=== PATIENT | female | born 1975 | race Caucasian/White ===

== ENCOUNTER 2017-01-31 10:08 | Emergency (ER) | payer MEDICAID ==
[~2017-01-31] VITALS: Ht 167.6 cm; Wt 52.0 kg
[2017-01-31 11:25] LABS: HEMATOCRIT 44.1 % (34.6-47.8); HEMOGLOBIN 14.8 g/dL (11.7-16.4)
[2017-01-31 11:39] LABS: BLOOD UREA NITROGEN 19 mg/dL (7-18)
[2017-01-31 11:45] LABS: IS PT STATUS REG ER OR PRE ER? YES
[2017-01-31 13:00] VITALS: BP 107/66
== END 2017-01-31 13:02 | disposition home or self-care (01) ==
LOC: ED 12:28
DX: R55 Syncope and collapse (principal); R00.2 Palpitations; Z88.0 Allergy status to penicillin; Z88.1 Allergy status to other antibiotic agents
CPT/HCPCS: 36415; 71010; 80048; 82040; 84436; 84443; 84484; 85025; 93005; 99285

== ENCOUNTER 2017-11-15 17:40 | Emergency (ER) | payer MEDICAID ==
[~2017-11-15] VITALS: Ht 167.6 cm; Wt 46.8 kg
[2017-11-15 17:52] VITALS: BP 146/92
[2017-11-15] MEDS ORDERED: SILVER SULF. CRM 1% , 25GM TP ONE ×2 (18:00→19:00)
[2017-11-15] MEDS ORDERED: DIPH,PERTUSS(ACELL),TET VAC/PF 0.5 ML IM-VACC ONE ×2 (18:00→19:20)
[2017-11-15] MEDS ORDERED: IBUPROFEN 200 MG TABLET PO ONE (19:00)
[2017-11-15] MEDS ORDERED: HYDROcodone/APAP 5/325 TABLET PO ONE (19:00)
[2017-11-15] MEDS ORDERED: HYDROcodone/APAP 5/325 TABLET ONE (19:21)
[2017-11-15] MEDS ORDERED: IBUPROFEN 200 MG TABLET ONE (19:21)
== END 2017-11-15 20:14 | disposition home or self-care (01) ==
LOC: ED 19:45
DX: T25.232A Burn of second degree of left toe(s) (nail), initial encounter (principal); T31.0 Burns involving less than 10% of body surface; K21.9 Gastro-esophageal reflux disease without esophagitis; Z88.0 Allergy status to penicillin; X12.XXXA Contact with other hot fluids, initial encounter; Y93.89 Activity, other specified; Y92.098 Other place in other non-institutional residence as the place of occurrence of the external cause; Y99.8 Other external cause status
CPT/HCPCS: 16020; 90715; 96372; 99283; 99284

== ENCOUNTER 2017-12-13 18:29 | Emergency (ER) | payer MEDICAID ==
[~2017-12-13] VITALS: Ht 167.6 cm; Wt 50.0 kg
[2017-12-13 18:38] VITALS: BP 110/83
[2017-12-13] MEDS ORDERED: LIDOCAINE-MPF 2% ,5ML ONE (18:57)
[2017-12-13] MEDS ORDERED: DEXAMETHASONE 4 MG TABLET PO ONE (19:00)
[2017-12-13] MEDS ORDERED: METOCLOPRAMIDE 5 MG/ML, 2ML IVPush ONE (19:00)
[2017-12-13] MEDS ORDERED: SODIUM CHLORIDE 0.9% 1,000ML IVBOLUS ONE (19:00)
[2017-12-13] MEDS ORDERED: SODIUM CHLORIDE FLUSH 10ML SYR IVF ONE (19:00)
[2017-12-13] MEDS ORDERED: LIDOCAINE 2%, 10ML INFIL ONE (19:00)
[2017-12-13] MEDS ORDERED: DIPHENHYDRAMINE 50 MG/ML, 1ML IVPush ONE (19:00)
[2017-12-13 19:15] LABS: BASOPHILS # (AUTO) 0.06 x10^3/uL (0-0.1); BASOPHILS % (AUTO) 1 % (0-1); EOSINOPHILS # (AUTO) 0.12 x10^3/uL (0-0.4); EOSINOPHILS % (AUTO) 1 % (1-7); LYMPHOCYTES # (AUTO) 2.44 x10^3/uL (1-3.4); LYMPHOCYTES % (AUTO) 30 % (22-44); MD NO; MEAN CORPUSCULAR HEMOGLOBIN 28.9 pg (27.0-34.8); MEAN CORPUSCULAR HGB CONC 33.6 g/dL (32.4-35.8); MEAN CORPUSCULAR VOLUME 85.8 fL (80-100); MEAN PLATELET VOLUME 8.7 fL (7.4-10.4); MONOCYTES # (AUTO) 0.51 x10^3/uL (0.2-0.8); MONOCYTES % (AUTO) 6 % (2-9); NEUTROPHILS % (AUTO) 62 % (42-75); PLATELET COUNT 327 x10^3/uL (130-400); RED BLOOD COUNT 5.36 x10^6/uL (3.82-5.3); RED CELL DISTRIBUTION WIDTH 13.1 % (9.6-15.2)
[2017-12-13] MEDS ORDERED: DEXAMETHASONE 4 MG TABLET ONE (19:16)
[2017-12-13 19:26] LABS: CHLORIDE 107 mmol/L (98-107)
[2017-12-13 19:27] LABS: ALBUMIN 4.3 g/dL (3.4-5.0); ANION GAP 7 mmol/L (5-15); CALCIUM 9.3 mg/dL (8.5-10.1); CREATININE 1.01 mg/dL (0.55-1.02)
== END 2017-12-13 20:55 | disposition left against medical advice (07) ==
LOC: ED 20:50
DX: G44.039 Episodic paroxysmal hemicrania, not intractable (principal); I10 Essential (primary) hypertension; K21.9 Gastro-esophageal reflux disease without esophagitis; Z88.0 Allergy status to penicillin; Z88.1 Allergy status to other antibiotic agents; Z88.6 Allergy status to analgesic agent; Z90.49 Acquired absence of other specified parts of digestive tract
CPT/HCPCS: 36415; 80048; 82040; 84703; 85025; 99284

== ENCOUNTER 2018-04-18 00:37 | Emergency (ER) | payer MEDICAID ==
[~2018-04-18] VITALS: Ht 167.6 cm; Wt 47.2 kg
[2018-04-18] MEDS ORDERED: LISI-167 PO (00:52)
[2018-04-18] MEDS ORDERED: CARV12.543 PO (00:52)
[2018-04-18 01:26] LABS: BASOPHILS # (AUTO) 0.04 x10^3/uL (0-0.1); BASOPHILS % (AUTO) 1 % (0-1); EOSINOPHILS # (AUTO) 0.08 x10^3/uL (0-0.4); EOSINOPHILS % (AUTO) 1 % (1-7); LYMPHOCYTES # (AUTO) 1.98 x10^3/uL (1-3.4); LYMPHOCYTES % (AUTO) 27 % (22-44); MD NO; MEAN CORPUSCULAR HEMOGLOBIN 30.3 pg (27.0-34.8); MEAN CORPUSCULAR HGB CONC 34.2 g/dL (32.4-35.8); MEAN CORPUSCULAR VOLUME 88.5 fL (80-100); MEAN PLATELET VOLUME 7.7 fL (7.4-10.4); MONOCYTES # (AUTO) 0.49 x10^3/uL (0.2-0.8); MONOCYTES % (AUTO) 7 % (2-9); NEUTROPHILS # (AUTO) 4.64 x10^3/uL (1.8-6.8); NEUTROPHILS % (AUTO) 64 % (42-75); PLATELET COUNT 438 x10^3/uL (130-400); RED BLOOD COUNT 4.35 x10^6/uL (3.82-5.3); RED CELL DISTRIBUTION WIDTH 13.5 % (9.6-15.2)
[2018-04-18 01:36] LABS: ALBUMIN 3.7 g/dL (3.4-5.0); ANION GAP 9 mmol/L (5-15); CALCIUM 8.1 mg/dL (8.5-10.1); CHLORIDE 111 mmol/L (98-107)
[2018-04-18 01:40] LABS: FREE T4 (FREE THYROXINE) 1.17 ng/dL (0.76-1.46); TROPONIN I < 0.015 ng/mL (0.000-0.045)
[2018-04-18 01:41] VITALS: BP 111/73
[2018-04-18 01:45] LABS: THYROID STIMULATING HORMONE 0.471 mIU/L (0.358-3.740)
== END 2018-04-18 02:23 | disposition home or self-care (01) ==
LOC: ED 01:08
DX: R00.2 Palpitations (principal); R51 Headache; R07.89 Other chest pain; I11.0 Hypertensive heart disease with heart failure; I50.9 Heart failure, unspecified; K21.9 Gastro-esophageal reflux disease without esophagitis; F17.200 Nicotine dependence, unspecified, uncomplicated; Z90.49 Acquired absence of other specified parts of digestive tract
CPT/HCPCS: 36415; 71045; 80048; 82040; 84439; 84443; 84484; 85025; 93005; 99285

== ENCOUNTER 2019-04-22 12:59 | Inpatient (IN) | payer MEDICAID ==
[~2019-04-22] VITALS: Ht 167.6 cm; Wt 54.1 kg
[~2019-04-22 12:59] MED LIST: CARV12.543 PO; LISI-167 PO
[2019-04-22] MEDS ORDERED: SODIUM CHLORIDE 0.9% 1,000ML IVBOLUS ONE (13:30)
[2019-04-22] MEDS ORDERED: CEFTRIAXONE PMX 1GM/50ML 50 ML IVPB ONE (13:30)
[2019-04-22] MEDS ORDERED: HYDROmorphone 1 MG/ML, 1ML INJ IVPush PRN (13:30)
[2019-04-22] MEDS ORDERED: ONDANSETRON 2MG/ML, 2ML IVPush ONE (13:30)
[2019-04-22] MEDS ORDERED: SODIUM CHLORIDE FLUSH 10ML SYR IVF ONE (13:30)
[2019-04-22] MEDS ORDERED: ONDANSETRON 2MG/ML, 2ML ONE (13:31)
[2019-04-22] MEDS ORDERED: HYDROmorphone 1 MG/ML, 1ML VIAL ONE (13:31)
[2019-04-22] MEDS ORDERED: CEFTRIAXONE PMX 1GM/50ML 50 ML ONE (13:31)
--- NOTE | 2019-04-22 13:41 | NUR ---
pt to ed for bilat flank pain and painful urination x "a few days." pt is taking azo wtih no relief. pt now feels generalized aches and has a fever. pt connected to all monitors. tachy, all other vss. Dr. Ramirez to bs for assessment and orders received. iv established and labs and bc x1 collected. laboratory machinist to bs to collect bc x2. pt medicated per mar. ivf bolus started. no other needs at this time. poc discussed. all questions answered. awaiting lab results.
[2019-04-22 13:45] LABS: MEAN CORPUSCULAR HGB CONC 33.4 g/dL (32.4-35.8); MEAN CORPUSCULAR VOLUME 86.9 fL (80-100); MEAN PLATELET VOLUME 8.2 fL (7.4-10.4); PLATELET COUNT 354 x10^3/uL (130-400); RED BLOOD COUNT 4.68 x10^6/uL (3.82-5.3)
[2019-04-22 13:50] LABS: CULTURE INDICATED? YES; MICROSCOPIC INDICATED
[2019-04-22 13:55] LABS: ANION GAP 8 mmol/L (5-15); CALCIUM 8.4 mg/dL (8.5-10.1); CHLORIDE 104 mmol/L (98-107)
[2019-04-22 13:58] LABS: ALANINE AMINOTRANSFERASE 27 U/L (12-78); ALKALINE PHOSPHATASE 78 U/L (45-117); BILIRUBIN,TOTAL 0.9 mg/dL (0.2-1.0); CREATININE 1.31 mg/dL (0.55-1.02); TOTAL PROTEIN 7.6 g/dL (6.4-8.2)
--- NOTE | 2019-04-22 14:13 | NUR ---
PT RESTING IN ROOM. VSS. NO NEEDS EXPRESSED. CALL LIGHT WITHIN REACH. AWAITING LAB RESUTLS.
--- NOTE | 2019-04-22 14:45 | NUR ---
report to EMILIANO Gibbons. pt ready for transport. pt resting in room .vss. no needs exrpessed. call light within reach. awaiting transfer.
[2019-04-22 14:56] LABS: MD YES
[2019-04-22] MEDS ORDERED: SODIUM CHLORIDE 0.9% 1,000 ML IV SCH (15:06)
[2019-04-22 15:12] VITALS: BP 114/69
[2019-04-22 15:21] LABS: <PLATELET ESTIMATE> ADEQUATE; <PLT MORPHOLOGY> NORMAL PLT MORPH; <RBC MORPHOLOGY> NORMAL; BAND#(MANUAL) 1.04 x10^3/uL; BANDS%(MANUAL) 5 % (0-7); LYMPH#(MANUAL) 1.24 x10^3/uL (1-3.4); LYMPHS% (MANUAL) 6 % (22-44); MONOS#(MANUAL) 1.45 x10^3/uL (0.3-2.7); MONOS% (MANUAL) 7 % (2-9); SEG#(MANUAL) 16.97 x10^3/uL (1.8-6.8); SEGS% (MANUAL) 82 % (42-75)
[2019-04-22] MEDS ORDERED: SODIUM CHLORIDE 0.9% 1,000ML IV ONE (15:30)
[2019-04-22] MEDS ORDERED: morphine SULFATE 10 MG/ML, 1ML IV PRN (15:30)
[2019-04-22] MEDS ORDERED: PHARMACY MAY ADJ FOR RENAL FX MC SCH (15:30)
[2019-04-22] MEDS ORDERED: ONDANSETRON 2MG/ML, 2ML IV PRN (15:30)
[2019-04-22] MEDS: SODIUM CHLORIDE 0.9% 1,000 ML IV SCH (18:05)
[2019-04-22 18:32] VITALS: BP 111/73
[2019-04-22] MEDS ORDERED: ACETAMINOPHEN 325 MG TABLET ONE (18:38)
[2019-04-22] MEDS: ACETAMINOPHEN 325 MG TABLET PO PRN (18:39)
[2019-04-22 19:43] VITALS: BP 96/61
[2019-04-22] MEDS: ENOXAPARIN 30 MG/0.3 ML SQ SCH (20:06)
[2019-04-22] MEDS: NICOTINE 21 MG/24 HR PATCH.TD24 TD SCH (20:23)
[2019-04-22] MEDS: HYDROcodone/APAP 5/325 TABLET PO PRN (20:24)
[2019-04-22 22:00] VITALS: BP 86/54
[2019-04-22 22:51] VITALS: BP 87/52
[2019-04-22] MEDS ORDERED: SODIUM CHLORIDE 0.9%, 500ML IVBOLUS ONE (23:30)
[2019-04-23 01:51] VITALS: BP 93/55
[2019-04-23] MEDS: ACETAMINOPHEN 325 MG TABLET PO PRN (02:04)
[2019-04-23 04:19] VITALS: BP 99/62
[2019-04-23] MEDS: SODIUM CHLORIDE 0.9% 1,000 ML IV SCH ×2 (06:00→15:30)
[2019-04-23 06:04] VITALS: BP 95/61
[2019-04-23 07:09] VITALS: BP 97/59
[2019-04-23 07:44] LABS: ANION GAP 4 mmol/L (5-15); CALCIUM 6.9 mg/dL (8.5-10.1); CHLORIDE 116 mmol/L (98-107)
[2019-04-23 07:48] LABS: ALANINE AMINOTRANSFERASE 24 U/L (12-78); ALKALINE PHOSPHATASE 56 U/L (45-117); BILIRUBIN,TOTAL 0.7 mg/dL (0.2-1.0); CREATININE 0.82 mg/dL (0.55-1.02); TOTAL PROTEIN 5.3 g/dL (6.4-8.2)
[2019-04-23 07:56] LABS: MEAN CORPUSCULAR HEMOGLOBIN 29.2 pg (27.0-34.8); MEAN CORPUSCULAR HGB CONC 33.2 g/dL (32.4-35.8); MEAN CORPUSCULAR VOLUME 87.9 fL (80-100); MEAN PLATELET VOLUME 7.7 fL (7.4-10.4); PLATELET COUNT 232 x10^3/uL (130-400); RED CELL DISTRIBUTION WIDTH 13.2 % (9.6-15.2)
[2019-04-23 08:23] LABS: BASOPHILS % (AUTO) 0 % (0-1); EOSINOPHILS # (AUTO) 0.01 x10^3/uL (0-0.4); EOSINOPHILS % (AUTO) 0 % (1-7); LYMPHOCYTES # (AUTO) 0.45 x10^3/uL (1-3.4); LYMPHOCYTES % (AUTO) 2 % (22-44); MD SCAN; MONOCYTES # (AUTO) 1.31 x10^3/uL (0.2-0.8); MONOCYTES % (AUTO) 7 % (2-9); NEUTROPHILS # (AUTO) 16.49 x10^3/uL (1.8-6.8); NEUTROPHILS % (AUTO) 90 % (42-75)
[2019-04-23] MEDS: HYDROcodone/APAP 5/325 TABLET PO PRN ×4 (08:43→20:07)
[2019-04-23] MEDS: NICOTINE 21 MG/24 HR PATCH.TD24 TD SCH (08:43)
[2019-04-23] MEDS: ENOXAPARIN 30 MG/0.3 ML SQ SCH ×2 (08:44→20:11)
[2019-04-23] MEDS ORDERED: NICOTINE 21 MG/24 HR PATCH.TD24 TD SCH (09:00)
[2019-04-23] MEDS ORDERED: POTASSIUM CHLORIDE 20 MEQ TAB.ER.PRT PO ONE (10:00)
[2019-04-23] MEDS: CEFTRIAXONE PMX 2GM/50ML 50 ML IV SCH (12:52)
[2019-04-23] MEDS: CALCIUM CARBONATE 500 MG TAB.CHEW PO SCH ×2 (12:52→20:07)
[2019-04-23 13:46] VITALS: BP 122/76
[2019-04-23 19:27] VITALS: BP 112/66
[2019-04-23] MEDS ORDERED: MAGNESIUM SULFATE PMX 4GM/100M 100 ML IV ONE (19:30)
[2019-04-23] MEDS: CARVEDILOL 12.5 MG TABLET PO SCH (20:07)
[2019-04-24] MEDS: SODIUM CHLORIDE 0.9% 1,000 ML IV SCH ×3 (01:30→22:47)
[2019-04-24 01:35] VITALS: BP 102/67
[2019-04-24] MEDS: HYDROcodone/APAP 5/325 TABLET PO PRN ×4 (01:44→20:29)
[2019-04-24 06:47] LABS: BASOPHILS # (AUTO) 0.02 x10^3/uL (0-0.1); BASOPHILS % (AUTO) 0 % (0-1); EOSINOPHILS # (AUTO) 0.23 x10^3/uL (0-0.4); EOSINOPHILS % (AUTO) 2 % (1-7); LYMPHOCYTES # (AUTO) 0.69 x10^3/uL (1-3.4); LYMPHOCYTES % (AUTO) 6 % (22-44); MD NO; MEAN CORPUSCULAR HEMOGLOBIN 29.4 pg (27.0-34.8); MEAN CORPUSCULAR HGB CONC 33.1 g/dL (32.4-35.8); MEAN CORPUSCULAR VOLUME 88.9 fL (80-100); MEAN PLATELET VOLUME 8.4 fL (7.4-10.4); MONOCYTES # (AUTO) 0.88 x10^3/uL (0.2-0.8); MONOCYTES % (AUTO) 7 % (2-9); NEUTROPHILS # (AUTO) 9.97 x10^3/uL (1.8-6.8); NEUTROPHILS % (AUTO) 85 % (42-75); PLATELET COUNT 235 x10^3/uL (130-400); RED CELL DISTRIBUTION WIDTH 13.2 % (9.6-15.2)
[2019-04-24 06:55] LABS: ALANINE AMINOTRANSFERASE 22 U/L (12-78); ALBUMIN 1.9 g/dL (3.4-5.0); ANION GAP 3 mmol/L (5-15); CALCIUM 7.3 mg/dL (8.5-10.1); CHLORIDE 115 mmol/L (98-107); CREATININE 0.74 mg/dL (0.55-1.02)
[2019-04-24 06:57] VITALS: BP 109/72
[2019-04-24 06:57] LABS: ALKALINE PHOSPHATASE 63 U/L (45-117); BILIRUBIN,TOTAL 0.3 mg/dL (0.2-1.0); TOTAL PROTEIN 5.5 g/dL (6.4-8.2)
[2019-04-24] MEDS: ENOXAPARIN 30 MG/0.3 ML SQ SCH ×2 (08:46→20:29)
[2019-04-24] MEDS: CALCIUM CARBONATE 500 MG TAB.CHEW PO SCH ×2 (08:46→20:29)
[2019-04-24] MEDS: CARVEDILOL 12.5 MG TABLET PO SCH ×2 (08:46→20:28)
[2019-04-24] MEDS: NICOTINE 21 MG/24 HR PATCH.TD24 TD SCH (08:47)
[2019-04-24] MEDS ORDERED: MAGNESIUM SULFATE PMX 2GM/50ML 50 ML IV ONE (09:00)
[2019-04-24 12:16] VITALS: BP 104/68
[2019-04-24] MEDS: CEFTRIAXONE PMX 2GM/50ML 50 ML IV SCH (13:20)
[2019-04-24 20:11] VITALS: BP 125/80
[2019-04-24] MEDS: ACETAMINOPHEN 325 MG TABLET PO PRN (20:28)
[2019-04-25 02:27] VITALS: BP 115/70
[2019-04-25] MEDS: HYDROcodone/APAP 5/325 TABLET PO PRN (05:27)
[2019-04-25 07:25] VITALS: BP 123/72
[2019-04-25] MEDS: ENOXAPARIN 30 MG/0.3 ML SQ SCH (08:00)
[2019-04-25] MEDS: SODIUM CHLORIDE 0.9% 1,000 ML IV SCH (08:38)
[2019-04-25 09:35] LABS: BASOPHILS # (AUTO) 0.03 x10^3/uL (0-0.1); BASOPHILS % (AUTO) 0 % (0-1); EOSINOPHILS # (AUTO) 0.03 x10^3/uL (0-0.4); EOSINOPHILS % (AUTO) 0 % (1-7); LYMPHOCYTES # (AUTO) 0.79 x10^3/uL (1-3.4); LYMPHOCYTES % (AUTO) 11 % (22-44); MD NO; MEAN CORPUSCULAR HEMOGLOBIN 28.8 pg (27.0-34.8); MEAN CORPUSCULAR HGB CONC 33.3 g/dL (32.4-35.8); MEAN CORPUSCULAR VOLUME 86.6 fL (80-100); MONOCYTES # (AUTO) 0.56 x10^3/uL (0.2-0.8); MONOCYTES % (AUTO) 8 % (2-9); NEUTROPHILS # (AUTO) 5.68 x10^3/uL (1.8-6.8); NEUTROPHILS % (AUTO) 80 % (42-75); PLATELET COUNT 284 x10^3/uL (130-400); RED BLOOD COUNT 3.39 x10^6/uL (3.82-5.3); RED CELL DISTRIBUTION WIDTH 13.3 % (9.6-15.2)
[2019-04-25 09:44] LABS: ANION GAP 5 mmol/L (5-15); CALCIUM 7.4 mg/dL (8.5-10.1); CHLORIDE 115 mmol/L (98-107); CREATININE 0.74 mg/dL (0.55-1.02)
[2019-04-25] MEDS: NICOTINE 21 MG/24 HR PATCH.TD24 TD SCH (09:57)
[2019-04-25] MEDS: CARVEDILOL 12.5 MG TABLET PO SCH (09:57)
[2019-04-25] MEDS: CALCIUM CARBONATE 500 MG TAB.CHEW PO SCH (09:57)
[2019-04-25] MEDS ORDERED: GUAIFENESIN 200 MG TABLET PO PRN (10:00)
[2019-04-25] MEDS ORDERED: CALC200T24 PO (10:59)
[2019-04-25] MEDS ORDERED: CEFD300C37 PO (10:59)
[2019-04-25] MEDS ORDERED: GUAI200T37 PO (10:59)
[2019-04-25] MEDS ORDERED: ACET325T26 PO (10:59)
[2019-04-25] MEDS ORDERED: POTASSIUM CHLORIDE 20 MEQ TAB.ER.PRT PO ONE (11:00)
[2019-04-25] MEDS: CEFTRIAXONE PMX 2GM/50ML 50 ML IV SCH (12:49)
[2019-04-25 14:10] VITALS: BP 123/72
== END 2019-04-25 14:46 | disposition home or self-care (01) | DRG 871 ==
LOC: ED 14:01 → EDIP 14:02 → ED 14:33 → SUATTDRO 14:39 → 3N 14:46 → DCLOUNGE 04-25 14:30
PROVIDERS: ADMIT Family Medicine; ATTEND Internal Medicine
DX: A41.9 Sepsis, unspecified organism (principal); N17.0 Acute kidney failure with tubular necrosis; N12 Tubulo-interstitial nephritis, not specified as acute or chronic; E44.0 Moderate protein-calorie malnutrition; Z68.1 Body mass index [BMI] 19.9 or less, adult; B96.20 Unspecified Escherichia coli [E. coli] as the cause of diseases classified elsewhere; E83.51 Hypocalcemia; E87.6 Hypokalemia; F17.210 Nicotine dependence, cigarettes, uncomplicated; I10 Essential (primary) hypertension; Z88.5 Allergy status to narcotic agent; Z88.0 Allergy status to penicillin; Z88.8 Allergy status to other drugs, medicaments and biological substances; Q63.1 Lobulated, fused and horseshoe kidney; Q63.2 Ectopic kidney; R32 Unspecified urinary incontinence; Z80.9 Family history of malignant neoplasm, unspecified
CPT/HCPCS: 36415; 76770; 80048; 80053; 81001; 82330; 83605; 83735; 85025; 87040; 87077; 87086; 87186; 96361; 96374; 96375; 99285; G0378; J0696; J1170; J1650; J2405; J3475; J7030; J7040